=== PATIENT | female | born 1965 | race Hispanic/Latino ===

== ENCOUNTER → 2018-09-28 | Day surgery (SDC) | payer BC ==
[~2018-09-28] MED LIST: CEFAZOLIN SOD 1 GM/NS 50ML 50 ML IV ONE; CLINDAMYCIN PHOS 900MG/ 50ML 50 ML IV ONE; DEXAMETHASONE SOD PHOS INJ 4 MG/ML VIAL ONE; FENTANYL CITRATE/PF 100MCG/2 ML INJ ONE; HYDROMORPHONE 2MG/ML 2 MG/ML ML ONE; LIDOCAINE HCL 2% LOCAL INJ 5 ML SDV VIAL INJ ONE; LOSARTAN POTASS25 MG PO; MIDAZOLAM HCL 2 MG/2 ML VIAL ONE; ONDANSETRON HCL INJ 2MG/ML 2ML 2 MG/ML VIAL ONE; PRAVASTATIN SOD40 MG PO; PROPOFOL IV EMULSION 10 MG/ML 20 ML VIAL ONE; SEVOFLURANE INHAL SOLN 250 ML PEN BTL ONE; SPIRONOLACTONE25 MG PO; VITAMIN B12 PO; VITAMIN D1000 UNI1 PO
--- NOTE | 2018-09-28 11:19 | Operative Report ---
DATE OF PROCEDURE: 09/28/2018 SURGEON: Brant Contreras MD MACHINE SIZER: Diego Tejada PA-C PREOPERATIVE DIAGNOSIS: Lateral meniscal tear, left knee. POSTOPERATIVE DIAGNOSIS: Lateral meniscal tear, left knee. PROCEDURES: Left knee arthroscopy, partial lateral meniscectomy. INDICATIONS: The patient is a 53-year-old lady, who has clinic signs and symptoms consistent with a tear of the lateral meniscus. She has failed conservative management and would like to proceed with arthroscopic intervention. The risks and benefits of the surgery have been discussed. Realistic expectations regarding the findings of arthritis have been explained. She states she understands and wishes to proceed. PROCEDURE IN DETAIL: The patient was brought to the operating room and placed under general anesthetic. Her left lower extremity was prepped and draped in a sterile manner. A preoperative time-out was performed. The extremity had been exsanguinated and a proximal tourniquet was inflated to 300 mmHg. Standard arthroscopy portals were established. The knee was insufflated with sterile saline and systematically inspected. The patellofemoral groove, medial compartment and cruciate ligaments were are were all unremarkable. There was an extensive complex tear of the anterior horn of the lateral meniscus. There was a quarter-size lesion of articular wear in the lateral femoral condyle. Most of the anterior horn of the lateral meniscus had to be removed to get back to a hook stable rim. Before and after photographs were taken. The margins of the articular damage were stable. The knee was thoroughly irrigated and the arthroscopic instruments were removed. The portal incisions were closed with nylon stitches. A sterile bandage was applied. There was no blood loss. All needle and sponge counts were correct. Brant Contreras MD DR/PHILIP /[id number]
[2018-09-28 12:15] VITALS: BP 116/60
== END | disposition home or self-care (01) ==
LOC: OR 08:28
PROVIDERS: ATTEND Specialist
DX: S83.272A Complex tear of lateral meniscus, current injury, left knee, initial encounter (principal); I10 Essential (primary) hypertension; I25.10 Atherosclerotic heart disease of native coronary artery without angina pectoris; I44.7 Left bundle-branch block, unspecified; I45.10 Unspecified right bundle-branch block; X58.XXXA Exposure to other specified factors, initial encounter; Z88.0 Allergy status to penicillin; Z88.6 Allergy status to analgesic agent; Z01.810 Encounter for preprocedural cardiovascular examination; Z68.36 Body mass index [BMI] 36.0-36.9, adult
CPT/HCPCS: 29881; 93005; J0690; J1100; J1170; J2001; J2250; J2405; J2704; J3010